=== PATIENT | female | born 1965 | race Caucasian/White ===

== ENCOUNTER 2020-01-08 09:05 | Inpatient (IN) ==
[2020-01-03 13:39] LABS: Appearance,Urine CLEAR; Bilirubin,Urine NEG (NEG); Color,Urine STRAW; Culture Indicated,Urine NO; Glucose,Urine (UA) NEGATIVE (NEG); Ketones,Urine NEG (NEG); Leukocyte Esterase,Urine NEG /uL (NEG); Nitrate,Urine NEG (NEG); Protein,Urine NEG (NEG); Specific Gravity,Urine 1.009 (1.000-1.035); Urine Blood NEG mg/dL (<0.03); Urobilinogen,Urine NEG (NEG)
[2020-01-03 14:40] LABS: Prothrombin Time 13.1 sec (11.9-14.5)
[2020-01-03 14:57] LABS: Basophils # (Auto) 0.05 K/mcL (0.00-0.30); Basophils % (Auto) 0.7 % (0.0-2.0); Eosinophils # (Auto) 0.32 K/mcL (0.00-0.70); Eosinophils % (Auto) 4.6 % (0.0-7.0); Granulocytes % (Auto) 56.5 % (38.0-78.0); Hematocrit 47.8 % (34.1-44.9); Hemoglobin 15.7 g/dL (11.2-15.7); Lymphocytes % (Auto) 30.3 % (15.5-49.0); Mean Cell Volume 88.7 fL (80.0-100.0); Mean Corpuscular HGB Conc 32.8 g/dL (31.0-36.0); Monocytes # (Auto) 0.55 K/mcL (0.10-0.90); Monocytes % (Auto) 7.9 % (1.0-12.0); Platelet Count 186 K/mcL (140-440); RBC 5.39 M/mcL (3.59-5.38); Red Cell Distribution Width 12.1 % (11.5-14.5); WBC 6.9 K/mcL (4.50-11.00)
[2020-01-03 16:01] LABS: Blood Urea Nitrogen 12 mg/dl (6-20); Calcium 9.3 mg/dl (8.6-10.4); Carbon Dioxide 24 mmol/L (22-30); Chloride 103 mmol/L (96-108); Glomerular Filtration Rate 82; Glucose 95 mg/dL (70-105)
[~2020-01-08 09:05] MED LIST: 0.9 % SODIUM CHLORIDE 9 ML, KETOROLAC 30 MG, ROPIVACAINE HCL/PF 49.5 ML, EPINEPHrine 0.... IJ SCH; ACETAMINOPHEN 500 MG TABLET PO SCH; CELECOXIB 200 MG CAPSULE PO SCH; IPRATROPIUM/ALBUTEROL 3 ML AMPUL.NEB NEB PRN; PREGABALIN 75 MG CAPSULE PO SCH; SCOPOLAMINE 1 PATCH PATCH TOPICAL PRN; ceFAZolin 3 GM in DEXTROSE 5% IN WATER 50 ML IV SCH; oxyCODONE 10 MG TAB.ER.12H PO SCH
[2020-01-08] MEDS ORDERED: LIDOCAINE HCL/PF 100 MG/5 ML SYRINGE IV ONE (11:30)
[2020-01-08] MEDS ORDERED: ePHEDrine 50 MG/ML AMPUL IV ONE (11:30)
[2020-01-08] MEDS ORDERED: DEXAMETHASONE 10 MG/ML VIAL IV ONE (11:30)
[2020-01-08] MEDS ORDERED: TRANEXAMIC ACID 1,000 MG/10 ML VIAL IV ONE (11:30)
[2020-01-08] MEDS ORDERED: PROPOFOL 200 MG/20 ML VIAL IV ONE (11:30)
[2020-01-08] MEDS ORDERED: ONDANSETRON 4 MG/2 ML VIAL IV ONE (11:30)
[2020-01-08] MEDS ORDERED: KETAMINE 100 MG/ML ML IV ONE (11:30)
[2020-01-08] MEDS ORDERED: ROPIVACAINE HCL/PF 20 ML VIAL IJ ONE (11:30)
[2020-01-08] MEDS ORDERED: GENTAMICIN SULFATE 800 MG/20 ML VIAL IR ONE (12:04)
[2020-01-08] MEDS ORDERED: NALOXONE HCL 0.4 MG/ML VIAL IV PRN (12:24)
[2020-01-08] MEDS ORDERED: diphenhydrAMINE 50 MG/ML VIAL IV PRN (12:24)
[2020-01-08] MEDS ORDERED: MEPERIDINE 25 MG/ML SYRINGE IV PRN (12:24)
[2020-01-08] MEDS ORDERED: fentaNYL 100 MCG/2 ML VIAL IV PRN (12:24)
[2020-01-08] MEDS ORDERED: LACTATED RINGERS 250 ML IV PRN (12:24)
[2020-01-08] MEDS ORDERED: PROMETHAZINE 25 MG/ML VIAL IV PRN (12:24)
[2020-01-08] MEDS ORDERED: IPRATROPIUM/ALBUTEROL 3 ML AMPUL.NEB NEB PRN (12:24)
[2020-01-08] MEDS ORDERED: ONDANSETRON 4 MG/2 ML VIAL IV PRN (12:24)
[2020-01-08] MEDS ORDERED: LACTATED RINGERS 1,000 ML IV SCH (12:30)
--- NOTE | 2020-01-08 12:48 | Brief Operative Note ---
Date of procedure: 01/08/20 Pre-op diagnosis: right knee djd Post-op diagnosis: same Procedure: right tka Grafts/Implants: Yes Anesthesia: JAMES Surgeon: Aditya Padilla Cattle Trader: Lenny Dorado Estimated blood loss (cc): 20 Tourniquet Time (Minutes): 43 Specimens Removed/Pathology: none sent Condition: stable Disposition: PACU
[2020-01-08] MEDS ORDERED: BENZOCAINE/MENTHOL 1 LOZENGE PO PRN (12:49)
[2020-01-08] MEDS ORDERED: HYDROmorphone 2 MG/ML VIAL IV PRN (12:49)
[2020-01-08] MEDS ORDERED: BISACODYL 10 MG SUPP.RECT PR PRN (12:49)
[2020-01-08] MEDS ORDERED: TRANEXAMIC ACID 1,000 MG/10 ML VIAL IV SCH (12:49)
[2020-01-08] MEDS ORDERED: POLYETHYLENE GLYCOL 3350 17 GM PACKET PO PRN (12:49)
[2020-01-08] MEDS ORDERED: ACETAMINOPHEN 325 MG TABLET PO PRN (12:49)
[2020-01-08] MEDS ORDERED: MAGNESIUM HYDROXIDE 30 ML ORAL.SUSP PO PRN (12:49)
[2020-01-08] MEDS ORDERED: FLEETS ADULT ENEMA PR PRN (12:49)
[2020-01-08] MEDS ORDERED: METHOCARBAMOL 500 MG TABLET PO PRN (12:52)
--- NOTE | 2020-01-08 13:19 | Operative Note ---
DATE OF OPERATION: 01/08/2020 PREOPERATIVE DIAGNOSIS: Right knee degenerative arthritis. POSTOPERATIVE DIAGNOSIS: Right knee degenerative arthritis. PROCEDURE: Right total knee arthroplasty. SURGEON: dAitya Padilla MD WIRE STEWARD: Lenny Dorado PA-C. This provider's expertise and technical skill were required throughout the case. The PA assisted with preoperative coordination, intraoperative retraction, wound closure, dressing and splint application, as well as postoperative documentation and care coordination. ANESTHESIA: General LMA anesthesia. COMPLICATIONS: None. TOTAL TOURNIQUET TIME: 43 minutes. DESCRIPTION OF PROCEDURE: The patient was brought to the operating room and put to sleep with general LMA anesthesia. Once asleep, the patient had the right leg sterilely prepped and draped in the usual sterile fashion. We confirmed the operative site by initials, consent form and x-rays. The patient had also received preoperative antibiotics and tranexamic acid. Once this had been all confirmed, we proceeded with a right total knee arthroplasty. A midline incision was made, midvastus approach performed. Once done, we then made a midline incision, midvastus approach, exposed the joint and severe arthritis in all three compartments were encountered. The tourniquet was inflated to 250 pounds of pressure and we placed an intramedullary guide hole into the femur. The distal femoral cut was made at 9 mm. Anterior and posterior chamfer cuts for a size 5 was performed. We irrigated thoroughly and removed the bony fragments. I removed the remnants of the meniscus and made our tibial cut with intramedullary alignment guide. This was cut at 8 mm below the least involved area. Once done, we then removed this bony fragment. Any remnants of the spurs were also removed, medial and lateral, and we trialed a size 5 tibial baseplate, size 5 femur and a box cut was made for the femur. This was a posterior stabilized design. A 9 mm poly fit well, but this seemed to have a little laxity. We then went with a size 10 mm poly. This was appropriately tension both in extension, flexion and mid flexion. We irrigated and prepared the patella. It measured a total thickness of 22 mm. Once this was measured, we cut this to 13 mm and placed a 35 mm patellar button that was 9 mm thick. This restored its normal thickness. Once done, we then cemented into place the above-mentioned sizes with antibiotic-impregnated cement, using pulse lavage as well as CarboJet. Once this was done, we then used a 10 mm poly, 35 mm patellar button, size 5 femur and size 5 tibial baseplate-ODC components, all cemented with antibiotic cement. We irrigated thoroughly, removed any excess cement and then took the knee through the full arc of motion. We closed the mid vastus approach with #1 Stratafix x2 sutures. The skin was closed with Stratafix and Monocryl and latasha superficially. The patient tolerated this well without complication. CHRISTIANE:rich Job ID: [id number] Doc ID: [id number] Aditya Padilla MD
--- NOTE | 2020-01-08 13:38 | XRay Report ---
CLINICAL INFORMATION: Postsurgical follow-up TECHNIQUE: Portable AP and crosstable lateral right knee COMPARISON: None. FINDINGS: Status post right total knee arthroplasty. Femoral and tibial components are in anatomic positions. There are skin latasah anteriorly. There is postsurgical soft tissue and intra-articular gas IMPRESSION: Right total knee arthroplasty Interpreted and Authenticated by: Terence Deshpande 01/08/20
[2020-01-08] MEDS: 0.9 % SODIUM CHLORIDE 10 ML SYRINGE IV SCH ×2 (15:26→21:23)
[2020-01-08] MEDS: ONDANSETRON 4 MG/2 ML VIAL IV PRN (16:33)
[2020-01-08] MEDS: LACTATED RINGERS 1,000 ML IV SCH ×2 (16:34→23:39)
[2020-01-08] MEDS: FERROUS SULFATE 325 MG TABLET PO SCH (17:34)
[2020-01-08] MEDS ORDERED: KETOROLAC 15 MG/ML VIAL IV SCH (18:00)
[2020-01-08] MEDS: ceFAZolin 1 GM VIAL IV SCH (19:15)
[2020-01-08] MEDS: HYDROcodone/APAP 10/325MG TABLET PO PRN ×3 (19:15→23:38)
[2020-01-08] MEDS ORDERED: SENNOSIDES 1 TABLET PO SCH (21:00)
[2020-01-08] MEDS ORDERED: TEMAZEPAM 15 MG CAPSULE PO PRN (21:00)
[2020-01-08] MEDS: ASPIRIN 325 MG ENTERIC COATED TABLET PO SCH (21:23)
[2020-01-08] MEDS: DOCUSATE SODIUM 100 MG CAPSULE PO SCH (21:23)
[2020-01-08] MEDS: LOSARTAN 50 MG TABLET PO SCH (21:23)
[2020-01-09] MEDS: ceFAZolin 1 GM VIAL IV SCH (03:05)
[2020-01-09] MEDS: HYDROcodone/APAP 10/325MG TABLET PO PRN ×3 (03:22→11:30)
[2020-01-09] MEDS: 0.9 % SODIUM CHLORIDE 10 ML SYRINGE IV SCH (06:06)
--- NOTE | 2020-01-09 08:13 | Discharge Summary ---
Ortho Discharge - TKA - Patient Instructions Diet: Regular Diet Activity: activity as tolerated, weight bearing as tolerated Total Knee Protocol: For Total Knee: Start ROM LIANG with stationary bike or rocking chair. Work on gaining full extension of knee. Posterior dislocation precautions provided. Hip abductor strengthening and gait training instructions provided. Apply Cryocuff as instructed. Dressing Care: May shower in 2 days - Follow Up Plan Follow Up Appointments: Wenceslao Singh PA-C [Physician Sr. Merchandise Planner] - 01/19/20 9:20 am Disposition: Home, Self-Care Prognosis: Good Rehab Potential: Good I certify that the patient requires SNF services: No Overall status at discharge: patient is progressing back to baseline - Orders For Discharge Prescriptions: HYDROcodone/APAP 10/325MG [[employer] 10-325Mg] 10 - 20 mg PO Q4HP PRN #60 tab PRN Reason: Pain Level 3-6 Prescription Printed Additional Discharge Orders: Physical Therapy at Discharge - TKA Location: None Selected CPM Discharge Order Location: None Selected Toilet Riser Discharge Order Location: None Selected Walker Location: None Selected
[2020-01-09] MEDS: ONDANSETRON 4 MG/2 ML VIAL IV PRN (08:14)
[2020-01-09] MEDS: FERROUS SULFATE 325 MG TABLET PO SCH (08:58)
[2020-01-09] MEDS ORDERED: DOCUSATE SODIUM 100 MG CAPSULE PO SCH (09:00)
[2020-01-09] MEDS ORDERED: FUROSEMIDE 40 MG TABLET PO SCH (09:00)
[2020-01-09] MEDS ORDERED: PSYLLIUM HUSK 6 GM PACKET PO SCH (09:00)
[2020-01-09] MEDS ORDERED: METOPROLOL SUCCINATE 50 MG TAB.XL.24H PO SCH (09:00)
[2020-01-09] MEDS ORDERED: CELECOXIB 200 MG CAPSULE PO SCH (09:00)
[2020-01-09] MEDS ORDERED: MULTIVIT,THER IRON,CA,FA & MIN 1 TABLET PO SCH (09:00)
[2020-01-09] MEDS: ASPIRIN 325 MG ENTERIC COATED TABLET PO SCH (09:45)
[2020-01-09] MEDS: DOCUSATE SODIUM 100 MG CAPSULE PO SCH (09:46)
[2020-01-09] MEDS: LOSARTAN 50 MG TABLET PO SCH (09:46)
[2020-01-09] MEDS: LACTATED RINGERS 1,000 ML IV SCH (09:59)
== END 2020-01-09 11:30 | disposition home or self-care (01) | DRG 470 ==
LOC: MEDSUR 09:37 → EDSTATUS 13:30 → MEDSUR 18:07
PROVIDERS: ADMIT Orthopaedic Surgery; ATTEND Orthopaedic Surgery